=== PATIENT | male | born 1960 | race Caucasian/White ===

== ENCOUNTER → 2021-05-30 11:04 | Outpatient (CLI) | payer BC, SELFPAY ==
--- NOTE | ~2021-05-30 | MR_ITS ---
EXAMINATION: MR lumbar spine wo con EXAM DATE: 05/30/2021 11:58 INDICATION: Low back pain, claudication down right thigh. Bilateral toe numbness. TECHNIQUE: Multi-sequential, multiplanar MR images of the lumbar spine were obtained without contrast . Sagittal T1, T2, T2 fat saturation images. Axial T2 weighted images. Correlation is made to lumba r x-ray 2015. FINDINGS: The vertebral bodies are aligned in the AP dimension. Mild diffuse lumbar disc disease. The re is a lesion in the right side of L1 vertebral body measuring up to 1.8 cm, indeterminate signal bu t suspect that there could be increased trabeculation; this is most likely an atypical hemangioma. CT scan without contrast could confirm trabeculation. The vertebral bodies are aligned in the AP dimens ion. The conus medullaris terminates at the T12-L1 level and has normal signal intensity and morpholo gy. Paraspinal soft tissue is unremarkable. Level by level evaluation: T12-L1: Disc does not extend beyond the endplate margin. Facet arthropathy: Minimal. Neural foraminal stenosis: No stenosis. Central canal stenosis: No stenosis. L1-L2: There is a mild diffuse disc bulge. Facet arthropathy: Mild. Neural foraminal stenosis: No stenosis. Central canal stenosis: Minimal. L2-L3: There is a mild diffuse disc bulge. Facet arthropathy: Mild to moderate. Neural foraminal stenosis: No stenosis. Central canal stenosis: Minimal. L3-L4: There is a moderate diffuse disc bulge, with a far right disc extrusion into the neural forami na, displacing the nerve root posteriorly. Facet arthropathy: Mild to moderate. Neural foraminal stenosis: Moderate right (discogenic extrusion), mild to moderate left. Central canal stenosis: Mild to moderate. L4-L5: There is a mild diffuse disc bulge. Facet arthropathy: Mild to moderate. Neural foraminal stenosis: Mild bilateral. Central canal stenosis: Mild. L5-S1: There is mild to moderate disc bulge asymmetric to the left Facet arthropathy: Mild to moderate. Neural foraminal stenosis: Moderate right, mild to moderate left. Central canal stenosis: Mild, some left lateral recess narrowing. IMPRESSION: 1. 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 2. L1 lesion, indeterminate signal characteristics but most likely hemangioma. CT without contrast c ould be confirmatory. Reviewed, dictated and finalized at location A. IMPRESSION: 1. L3-4 right central extrusion into the neural foramina causing moderate sten osis and posteriorly displacing exiting L3 nerve root. 2. L1 lesion, indeterminate signal characteristics but most likely hemangioma. CT without contrast could be confirmatory.
== END ==
PROVIDERS: PCP Family Medicine Adolescent Medicine; Visit Provider Physician Assistant
DX: M54.5 Low back pain (principal); I73.9 Peripheral vascular disease, unspecified; M51.26 Other intervertebral disc displacement, lumbar region
CPT/HCPCS: 72148

== ENCOUNTER 2023-02-11 13:33 | Outpatient (CLI) | payer BC, SELFPAY ==
[2023-02-11 13:47] LABS: Basophils Percent Auto 0.5 % (0.2-1.2); Eosinophils Absolute Auto 0.4 K/mm3 (0-0.3); Eosinophils Percent Auto 4.6 % (0-4.4); Hematocrit 45.6 % (42.0-52.0); Hemoglobin 14.9 g/dL (14.0-18.0); Immature Granulocyte Absolute 0.02 K/mm3 (0.00-0.031); Immature Granulocyte Percent A 0.2 % (0-0.5); Lymphocytes Absolute Auto 2.79 K/mm3 (0.9-3.2); Lymphocytes Percent Auto 32.6 % (18.3-44.2); Mean Corpuscular HGB Conc 32.7 g/dl (32-36); Mean Corpuscular Hemoglobin 28.3 pg (26-34); Mean Corpuscular Volume 86.5 fl (80-100); Mean Platelet Volume 9.1 fl (7.4-10.4); Monocytes Absolute Auto 0.7 K/mm3 (0.1-0.6); Monocytes Percent Auto 8.4 % (2.6-8.5); Neutrophils Absolute Auto 4.6 K/mm3 (1.3-6.7); Neutrophils Percent Auto 53.7 % (45.5-73.1); Platelet Count Result 280 k/mm3 (150-375); Red Blood Count 5.27 M/mm3 (4.6-6.20); Red Cell Distribution Width 13.3 % (11.5-14.5); White Blood Count 8.6 K/mm3 (4.5-10.0)
[2023-02-11 14:38] LABS: Iron 73 ug/dL (49-181)
[2023-02-11 14:42] LABS: INR 1.1; Prothrombin Time 13.4 Seconds (11.1-14.7)
[2023-02-11 14:43] LABS: Partial Thromboplastin Time 34.2 SECONDS (22.3-36.8)
[2023-02-11 14:47] LABS: Alanine Aminotransferase 33 U/L (6-50); Albumin Level 4.5 g/dL (3.5-5.1); Alkaline Phosphatase 56 U/L (38-126); Anion Gap 8 mmol/L (8-16); Aspartate Amino Transferase 29 U/L (17-59); Bilirubin,Total 0.8 mg/dL (0.2-1.3); Blood Urea Nitrogen 22 mg/dL (9-20); Calcium 9.1 mg/dL (8.4-10.2); Carbon Dioxide 27 mmol/L (22-30); Chloride 103 mmol/L (98-107); Estimated Glomerular Filt Rate > 60; Glucose 117 mg/dL (65-110); Potassium 3.7 mmol/L (3.4-5.0); Sodium 138 mmol/L (137-145)
[2023-02-11 14:51] LABS: Percent Iron Saturation 19 % (20-50)
[2023-02-11 15:49] LABS: Folic Acid 19.6 ng/mL (2.76->20)
== END 2023-02-11 13:34 | disposition home or self-care (01) ==
LOC: ANHLAB 13:35
PROVIDERS: PCP Family Medicine Adolescent Medicine; Visit Provider Internal Medicine Hematology & Oncology
DX: D64.9 Anemia, unspecified (principal); R23.3 Spontaneous ecchymoses
CPT/HCPCS: 36415; 80053; 82607; 82728; 82746; 83540; 83550; 85025; 85610; 85730